=== PATIENT | male | born 1990 | race Caucasian/White ===

== ENCOUNTER 2024-06-10 20:22 | Emergency (ER) | payer SELFPAY ==
[2024-06-10 20:23] VITALS: BP 149/92; BMI 25.9
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
[2024-06-10] MEDS: TORADOL 30 MG IM (21:58)
[2024-06-10 22:15] VITALS: BP 131/20
== END 2024-06-10 22:37 | disposition home or self-care (01) ==
LOC: EMR 20:22
PROVIDERS: EMERGENCY PHYSICIAN Emergency Medicine
DX: M25.512 Pain in left shoulder (principal); V28.49XA Other motorcycle driver injured in noncollision transport accident in traffic accident, initial encounter; Y92.410 Unspecified street and highway as the place of occurrence of the external cause; M25.532 Pain in left wrist; M25.561 Pain in right knee; R51.9 Headache, unspecified; M54.2 Cervicalgia
CPT/HCPCS: 99285; 96372; 70450; 72125; 73030; 73110; 73564

== ENCOUNTER 2024-06-24 14:55 | Emergency (ER) | payer OTHER, SELFPAY ==
[2024-06-24 15:03] VITALS: BP 155/93
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
[2024-06-24 16:55] VITALS: BP 129/83
[2024-06-24 16:56] VITALS: BP 129/83
== END 2024-06-24 16:57 | disposition home or self-care (01) ==
LOC: EMR 14:55
PROVIDERS: EMERGENCY PHYSICIAN Emergency Medicine
DX: M25.512 Pain in left shoulder (principal); R20.2 Paresthesia of skin; V29.99XA Rider (driver) (passenger) of other motorcycle injured in unspecified traffic accident, initial encounter
CPT/HCPCS: 99283; 73030; 73060